=== PATIENT | male | born 1955 | race Caucasian/White ===

== ENCOUNTER 2018-10-04 10:57 | Day surgery (SDC) | payer MEDICARE, OTHER ==
[2018-10-03 11:00] VITALS: BMI 38.3
[~2018-10-04 10:57] MED LIST: LACTATED RINGERS 1,000 ML IV SCH; LIDOCAINE 1% 20 ML VIAL (10MG/ML) FOR IV START INTRADERMA PRN; MOXIFLOXACIN HCL 0.5% DROPS 3 ML BTL OP ONE; TETRACAINE 0.5% OPHTH (PF) DROPS 4 ML BTL OP ONE; TIMOLOL 0.5% OPHTH DROPS 5 ML BTL OP ONE
[2018-10-04] MEDS: CYCLOPENTOLATE 1% OPHTH SOLN 2 ML BTL OP ONE ×3 (12:25→12:42)
[2018-10-04] MEDS: PHENYLEPHRINE 2.5% OPHTH DRP 2ML OP NR ×3 (12:30→12:44)
[2018-10-04 12:34] VITALS: RESP 16; TEMP 97.2
[2018-10-04] MEDS ORDERED: fentaNYL (PF) 50 MCG/ML 2 ML AMP ONE (14:03)
[2018-10-04] MEDS ORDERED: GLYCOPYRROLATE 0.2 MG/ML 2 ML VIAL ONE (14:03)
[2018-10-04] MEDS ORDERED: MIDAZOLAM 2 MG/2 ML VIAL ONE (14:03)
[2018-10-04] MEDS ORDERED: EPINEPHrine (PF) 0.3 ML in BALANCED SALT IRRIG SOLN COMB2 500 ML IRRIGATION ONE (14:14)
[2018-10-04] MEDS ORDERED: LIDOCAINE 1% (PF) 10MG/ML VIAL SQ ONE (14:18)
[2018-10-04] MEDS ORDERED: BALANCED SALT IRRIG SOLN COMB2 15 ML IRRIG.SOLN IRRIGATION ONE (14:18)
[2018-10-04] MEDS ORDERED: DUOVISC KIT (GREEN BOX) INTRAOCULA ONE (14:18)
[2018-10-04 15:11] VITALS: BP 171/90; PULSE 58
--- NOTE | 2018-10-04 15:55 | P.OP ---
Date of Procedure: 10/04/18 Preoperative Diagnosis: NS & CS & PSC & RP Postoperative Diagnosis: same Procedure(s) Performed: PIOL OD & CTR implantation Implants: PCB00 30.5 D & [id number] Anesthesia: GETA Surgeon: Dimitrios Salgado Estimated Blood Loss (ml): 0 Pathology: none sent Condition: stable Disposition: same day Indications for Procedure: poor vision Operative Findings: loose zonules, and flimsy bag
--- NOTE | 2018-10-05 06:54 | OP ---
OPERATIVE REPORT DATE OF SURGERY: October 04, 2018 PROCEDURE: Phacoemulsification of cataract and intraocular lens implant of the right eye. PREOPERATIVE DIAGNOSES: Retinitis pigmentosa, posterior subcapsular cataract, cortical sclerosis and nuclear sclerosis. POSTOPERATIVE DIAGNOSES: Retinitis pigmentosa, posterior subcapsular cataract, cortical sclerosis and nuclear sclerosis. Inclusive of those diagnoses, additionally finds zonular laxity. SURGEON: Dr. Dimitrios Salgado. ANESTHESIA: MAC. ESTIMATED BLOOD LOSS: None. SPECIMEN TAKEN: None. NARRATIVE: After obtaining the appropriate consent, the patient was brought to the operating room. There he was placed under cardiac monitoring and carefully placed into a twilight anesthesia. He was prepped and draped in the usual sterile manner. He was approached from his right temporal side and at the 12 o'clock position, a paracentesis was performed with an MVR blade. Through this opening, 1% Xylocaine MPF 50:50 mix with balanced salt solution was injected into the anterior chamber. This was followed by stabilization of the anterior chamber with Viscoat. At the 9 o'clock position, a 2.5 mm keratome was used to create a self-sealing corneal flap incision in a Langerman's fashion. Through this opening, a cystotome was introduced to begin a continuous tear capsulorrhexis which was completed using the Utrata forceps. Hydrodissection and hydrodelineation of the lens was accomplished with balanced salt solution. Phacoemulsification of the lens was accomplished in 14.73 seconds at 15% power. Additional Xylocaine MPF was instilled into the anterior chamber. This was followed by removal of the remaining cortex from in and around the capsular bag. However, during the course of this procedure, it became quite apparent that the capsular bag was probably not secure as it totally lost its normal shape and the posterior capsule was particularly flimsy. It was decided to insert a capsular tension ring of 12 mm in diameter, however, it was not able to be inserted with the proper instrumentation and required manual placement of the capsular tension ring due to preparation problems from earlier in the day of using the same instrument. However very carefully the capsular tension ring was placed without damaging any further the capsulorrhexis or the posterior capsule of the lens and very nicely the capsular membrane firmed up. Posterior capsule, however, remained quite flimsy and possibly significantly at risk for tearing with additional manipulation. Therefore, some of the remaining posterior capsular cortex was left in place to be removed at a later point in time. An AMBER PCB00 30.5 diopter posterior chamber intraocular lens was then inserted into the capsular bag without difficulty. The remaining viscoelastic was removed from in and around the intraocular lens as well as the anterior chamber. The eye was brought to normal intraocular pressure through the paracentesis port and the temporal incision was hydrated slightly with balanced salt solution. He then received 2 drops of 0.5% timolol followed by 2 drops of moxifloxacin. He was then lightly patched and shielded in the usual manner. There were no additional difficulties encountered during the course of the procedure. He tolerated the procedure well and was returned to recovery in good condition. MMODL / IJN: [id number] /
== END 2018-10-04 15:26 | disposition home or self-care (01) ==
LOC: OR 10:57
PROVIDERS: ATTEND Ophthalmology
DX: H25.11 Age-related nuclear cataract, right eye (principal); H35.52 Pigmentary retinal dystrophy; H40.9 Unspecified glaucoma; I10 Essential (primary) hypertension; N28.9 Disorder of kidney and ureter, unspecified; H25.043 Posterior subcapsular polar age-related cataract, bilateral; H52.13 Myopia, bilateral; H52.203 Unspecified astigmatism, bilateral; H35.039 Hypertensive retinopathy, unspecified eye; E66.9 Obesity, unspecified; Z79.899 Other long term (current) drug therapy; Z96.641 Presence of right artificial hip joint; Z68.30 Body mass index [BMI] 30.0-30.9, adult
CPT/HCPCS: 66984; L8610; C1780; J2250; J0171; J3010; J2001